=== PATIENT | female | born 1980 | race Caucasian/White ===

== ENCOUNTER 2018-03-16 09:59 | Emergency (ER) | payer OTHER, SELFPAY ==
[2018-03-16 10:01] VITALS: BP 137/83; PULSE 67; RESP 18; TEMP 36.7; O2SAT 100; BMI 18.2
--- NOTE | 2018-03-16 10:06 | DI.RAD.S_ITS ---
PROCEDURE: XR CHEST 1V INDICATIONS: chest pain TECHNIQUE: One view of the chest was acquired. COMPARISON: None. FINDINGS: Surgical changes and devices: None. Lungs and pleura: No pleural effusions or pneumothorax. Lungs are clear. Mediastinum: Mediastinal contours appear normal. Heart size is normal. Bones and chest wall: No suspicious bony lesions. Overlying soft tissues appear unremarkable. IMPRESSION: No acute disease. Dictated by: Flaquito Presley M.D. on 03/16/2018 at 11:13 Approved by: Flaquito Presley M.D. on 03/16/2018 at 11:15
[2018-03-16 10:33] LABS: INR 1.1 (0.9-1.3); Prothrombin Time 11.7 SECONDS (10.1-12.7)
[2018-03-16 10:35] LABS: Add Manual Diff / Slide Review NO; Basophils Percent Auto 0.6 % (0-2); Eosinophils Percent Auto 0.7 % (2-4); Lymphocytes Percent Auto 20.3 % (25-40); Mean Corpuscular HGB Conc 34.2 % (30-36); Mean Corpuscular Hemoglobin 30.5 PG (26-34); Mean Corpuscular Volume 89.2 fL (80-100); Monocytes Percent Auto 4.8 % (3-14); Neutrophils Absolute Auto 7100 /uL (3000-5900); Neutrophils Percent Auto 73.6 % (50-75); Platelet Count 331 X10^3/uL (150-400); Red Blood Cell Count 4.26 X10^6/uL (4.0-5.2); Red Cell Distribution Width 12.3 % (11.6-14.8); White Blood Cell Count 9.6 X10^3/uL (4.5-11.0)
[2018-03-16 10:36] LABS: PTT Partial Thromboplastin Tim 31 SECONDS (26.4-36.2)
[2018-03-16 10:38] LABS: Alanine Aminotransferase 21 IU/L (9-52); Albumin 4.5 g/dL (3.5-5.0); Albumin Globulin Ratio 1.7 (1.0-2.8); Alkaline Phosphatase 46 U/L (38-126); Aspartate Aminotransferase 24 IU/L (14-36); BUN Creatinine Ratio 11.4 (6-22); Bilirubin Total 0.7 mg/dL (0.2-1.3); Blood Urea Nitrogen 8 mg/dL (7-17); Calcium 9.3 mg/dL (8.4-10.2); Carbon Dioxide 24 mmol/L (22-32); Chloride 104 mmol/L (98-107); Creatine Kinase 62 U/L (30-135); Estimated Glomerular Filt Rate > 60.0 mL/min (>60); Globulin 2.6 g/dL (1.7-4.1); Glucose 100 mg/dL (70-100); HEMOLYSIS < 15 (0-50); Lipase 109 U/L (23-300); Potassium 4.3 mmol/L (3.4-5.1); Sodium 140 mmol/L (137-145); Total Protein 7.1 g/dL (6.3-8.2)
[2018-03-16 10:50] LABS: Troponin I < 0.012 ng/mL (0.01-0.034)
--- NOTE | 2018-03-16 11:15 | ED_ITS ---
HPI - Chest Pain General Chief Complaint: Chest Pain Stated Complaint: CHEST PAIN Time Seen by Provider: 03/16/18 10:54 Source: patient Mode of arrival: ambulatory Limitations: no limitations History of Present Illness HPI narrative: Patient is a 29-year-old female who presents with left-sided chest pain she says she feels twinges all off and on. It started yesterday. It happens at rest and with movement and exertion. No radiation it is in 1 spot. It felt better last night he held onto it. She denies any productive cough. Patient is not reproducible with arm movement. MD complaint: chest pain Related Data Home Medications Medication Instructions Recorded Confirmed cholecalciferol (vitamin D3) 1 tab PO QDAY #0 09/21/16 03/16/18 [Vitamin D3] ibuprofen 400 mg PO PRN PRN 03/16/18 03/16/18 norethindrone ac-eth estradiol 1 tab PO DAILY 03/16/18 03/16/18 [Microgestin 1.5/30 (21)] propranolol 20 mg PO PRN PRN 03/16/18 03/16/18 Allergies Allergy/AdvReac Type Severity Reaction Status Date / Time No Known Drug Allergies Allergy Verified 03/16/18 10:05 Review of Systems Review of Systems GENERAL: Denies chills, fatigue, malaise, fever, sweats, travel HEENT: Denies sinus pain, ear pain, sore throat, difficulty swallowing, neck pain RESPIRATORY: Denies dyspnea, cough, wheezing, hemoptysis, sputum. CARDIOVASCULAR: See HPI GASTROINTESTINAL: Denies nausea, vomiting, abdominal pain, diarrhea, constipation, melena. : Denies dysuria, frequency, incontinence, hematuria, urinary retention, flank pain. MUSCULOSKELETAL: Denies weakness, joint pain, or bony pain SKIN: No rash, no erythema, no pruritus NEUROLOGIC: Denies weakness, dizziness, headache, numbness, change in speech, confusion PSYCHIATRIC: No concerning psychosocial issues. 12 point review of systems is negative except for those stated above and HPI PFSH Medical History Anxiety (Chronic ~2014) Frequent UTI (Chronic) Skin rash (Chronic ~2010) Surgical History Anesthesia (Inactive) History of third molar tooth extraction Status post delivery (11/15/06) Status post delivery (03/04/10) Status post delivery (07/10/12) Family History Father Age: 60 Hypertension High cholesterol Grandfather Age: 85 Skin cancer Heart disease Grandfather Heart disease Social History Smoking Status: Never smoker Exam Initial Vital Signs Initial Vital Signs: Vital Signs Temperature 98.1 F 03/16/18 10:01 Pulse Rate 67 03/16/18 10:01 Respiratory Rate 18 03/16/18 10:01 Blood Pressure 137/83 03/16/18 10:01 Pulse Oximetry 100 03/16/18 10:01 GENERAL: Well-appearing, well-nourished and in no acute distress. HEENT: Head atraumatic,EOMI, pupils reactive, face symmetric, moist mucous membranes CARDIOVASCULAR: Regular rate and rhythm without murmurs, rubs or gallops. RESPIRATORY: Breath sounds equal bilaterally, no wheezes rales or rhonchi. ABDOMEN: Soft, nontender. Normoactive bowel sounds all 4 quadrants. No guarding or rebound. : No CVA tenderness EXTREMITIES: Normal range of motion, no clubbing or edema. Neurovascularly intact NEUROLOGICAL: Alert and oriented x4.Normal gait and speech. Cranial nerves II through XII grossly intact. SKIN: Warm, dry, no laceration, no petechiae, no rashes or lesions. Scores PERC Score Age greater than or equal to 50 years: No Heart rate greater than or equal to 100 bpm: No Room Air O2 Sat less than 95%: No Unilateral leg swelling: No Recent trauma or surgery: No Hemoptysis: No Prior PE or DVT: No Hormone Use: Yes Total PERC Score: 1 Course Orders Ordered: ED Orders 03/16/18 10:06 XR chest 1V Stat 03/16/18 10:19 Complete Blood Count AUTO DIFF Stat Comprehensive Metabolic Panel Stat Lipase Stat Partial Thromboplastin Time Stat Prothrombin Time INR Stat Troponin & CK Cardiac Panel Stat Discontinued Medications Ketorolac Tromethamine (Toradol) 30 mg IM NOW ONE Stop: 03/16/18 11:33 Last Admin: 03/16/18 11:42 Dose: 30 mg Vital Signs - 8 hr 03/16/18 10:01 03/16/18 12:02 Temperature 98.1 F Pulse Rate 67 73 Respiratory Rate 18 20 Blood Pressure 137/83 Pulse Oximetry 100 100 MDM - Chest Pain Lab Data Attestation: I reviewed the patient's lab results. Result diagrams: 03/16/18 10:19 03/16/18 10:19 Lab Results 03/16/18 03/16/18 03/16/18 Range/Units 10:19 10:19 10:19 WBC 9.6 (4.5-11.0) X10^3/uL RBC 4.26 (4.0-5.2) X10^6/uL Hgb 13.0 (12.0-16.0) g/dL Hct 38.0 (36-46) % MCV 89.2 (80-100) fL MCH 30.5 (26-34) PG MCHC 34.2 (30-36) % RDW 12.3 (11.6-14.8) % Plt Count 331 (150-400) X10^3/uL Neut % (Auto) 73.6 (50-75) % Lymph % (Auto) 20.3 L (25-40) % Kleberg % (Auto) 4.8 (3-14) % Eos % (Auto) 0.7 L (2-4) % Baso % (Auto) 0.6 (0-2) % Neut # (Auto) 7100 H (1951-9240) /uL PT 11.7 (10.1-12.7) SECONDS INR 1.1 (0.9-1.3) APTT 31 (26.4-36.2) SECONDS Sodium 140 (137-145) mmol/L Potassium 4.3 (3.4-5.1) mmol/L Chloride 104 (98-107) mmol/L Carbon Dioxide 24 (22-32) mmol/L BUN 8 (7-17) mg/dL Creatinine 0.70 (0.52-1.04) mg/dL Estimated GFR > 60.0 (>60) mL/min BUN/Creatinine Ratio 11.4 (6-22) Glucose 100 (70-100) mg/dL Calcium 9.3 (8.4-10.2) mg/dL Total Bilirubin 0.7 (0.2-1.3) mg/dL AST 24 (14-36) IU/L ALT 21 (9-52) IU/L Alkaline Phosphatase 46 (38-126) U/L Total Creatine Kinase 62 (30-135) U/L CK-MB (CK-2) TNP CK-MB (CK-2) Rel Index TNP Troponin I < 0.012 (0.01-0.034) ng/mL Total Protein 7.1 (6.3-8.2) g/dL Albumin 4.5 (3.5-5.0) g/dL Globulin 2.6 (1.7-4.1) g/dL Albumin/Globulin Ratio 1.7 (1.0-2.8) Lipase 109 (23-300) U/L Imaging Data Chest x-ray: Radiologist's impression: [address] [address] XRay Report Signed Patient: Meg Tee QMR#: [id number] : 1980Acct:[id number] Age/Sex: 37 / FDate of Service: 03/16/18 Loc: ED Accession Number: [id number] Procedure: XR chest 1V Ordering Provider: Lisandra Bustamante D.O. PROCEDURE: XR CHEST 1V INDICATIONS: chest pain TECHNIQUE: One view of the chest was acquired. COMPARISON: None. FINDINGS: Surgical changes and devices: None. Lungs and pleura: No pleural effusions or pneumothorax. Lungs are clear. Mediastinum: Mediastinal contours appear normal. Heart size is normal. Bones and chest wall: No suspicious bony lesions. Overlying soft tissues appear unremarkable. IMPRESSION: No acute disease. Dictated by: Flaquito Presley M.D. on 03/16/2018 at 11:13 ECG Data Attestation: I personally reviewed and interpreted this ECG as follows: Interpretation: Normal sinus rhythm rate 60 no acute changes MA interval [address] changes no T-wave inversions MDM Narrative Medical decision making narrative: Patient's pain is and 1 particular spot been ongoing for a number of hours. It is not consistent with cardiac pain or PE. it is worse with movement more likely costochondritis Discharge Plan Departure Patient Disposition: Home Clinical Impression: Acute costochondritis Discharge Date/Time: 03/16/18 12:03 Interventions: ED Discharge Assessment Last Done: 03/16/18 12:02 Instructions: Costochondritis Activity Restrictions/Additional Instructions: *You have been diagnosed with costochondritis *Continue to take medications as directed Motrin 800 mg with food every 8 hr if needed for pain *Follow up with your primary care provider in 2-3 days *Return to ER if you should have increasing chest pain, shortness of breath or any new, worsening or concerning symptoms Prescriptions: No Action cholecalciferol (vitamin D3) [Vitamin D3] 2,000 UNIT tablet 1 tab PO QDAY Qty: 0 RF: 0 norethindrone ac-eth estradiol [Microgestin 1.09/27 ()] 1.5-30 mg-mcg tablet 1 tab PO DAILY RF: 0 ibuprofen 200 mg Tablet 400 mg PO PRN PRN (Reason: Pain, Mild) RF: 0 propranolol 20 MG tablet 20 mg PO PRN PRN (Reason: Anxiety) RF: 0 Referrals: Janee Epps ARNP [Primary Care Provider] -
[2018-03-16] MEDS: KETOROLAC 60 MG/2 ML VIAL 30 MG IM (11:42)
[2018-03-16 12:02] VITALS: PULSE 73; RESP 20; O2SAT 100
--- NOTE | 2018-03-17 16:20 | CM.MNRNOTE ---
call back, no answer
== END 2018-03-16 12:03 | disposition home or self-care (01) ==
PROVIDERS: Emergency Provider Emergency Medicine; PCP Internal Medicine
DX: M94.0 Chondrocostal junction syndrome [Tietze] (principal)
CPT/HCPCS: 36415; 71045; 80053; 82550; 83690; 84484; 85025; 85610; 85730; 93005; 96372; 99283; 99285; J1885

== ENCOUNTER → 2019-03-11 08:13 | Outpatient (CLI) | payer OTHER, SELFPAY ==
--- NOTE | 2019-03-11 | DI.US.S_ITS ---
LIMITED ULTRASOUND OF LEFT BREAST: 03/11/2019 CLINICAL: Per technologist, patient reports sharp medial left breast pain beginning in mid-January 2019 and lasting for approximately 1-2 weeks which has since resolved. The patient reports that the pain is no longer present, but when it was present extended medially along the left breast along the 9 o'clock position. Comparison is made to exams dated: 03/11/2019 mammogram, 09/21/2016 ultrasound, and 09/21/2016 mammogram - [facility]. Color flow and real-time ultrasound of the left breast 9 o'clock region were performed. [place] scale images of the real-time examination were reviewed. Targeted ultrasound was performed in the region of the patient's reported prior painful area of concern along the 9 o'clock position of the left breast (which has since reportedly resolved per patient). No underlying breast mass or abnormality is identified. IMPRESSION: NEGATIVE 1) No ultrasound findings to explain patient's reported prior painful area of concern along the 9 o'clock position of the left breast (which has since reportedly resolved per patient). Recommend clinical follow-up for further evaluation and management of the patient's reported symptoms. 2) There is no sonographic evidence of malignancy in the imaged areas of the medial left breast. Return to annual screening mammography schedule is recommended. The patient is advised to monitor her breasts and to return sooner for re-evaluation should she feel anything grow or change. This exam was interpreted at Station ID: [id number]. Electronically Signed By: Bill Braxton M.D. ecl/:03/11/2019 09:36:48 letter sent: Clinical Evaluation Ultrasound BI-RADS: 1 Negative
--- NOTE | 2019-03-11 | DI.MG.S_ITS ---
BILATERAL DIGITAL DIAGNOSTIC MAMMOGRAM 3D/2D: 03/11/2019 CLINICAL: Per technologist, patient reports sharp medial left breast pain beginning in mid-January 2019 and lasting for approximately 1-2 weeks which has since resolved. The patient reports that the pain is no longer present, but when it was present extended medially along the left breast along the 9 o'clock position. Comparison is made to exam dated: 09/21/2016 [facility]. The tissue of both breasts is heterogeneously dense. This may lower the sensitivity of mammography. There is no underlying mass or abnormality of the medial left breast on mammography to correspond to the site of patient's reported prior medial left breast pain, which has reportedly resolved. No significant masses, calcifications, or other findings are seen in either breast. IMPRESSION: INCOMPLETE: NEEDS ADDITIONAL IMAGING EVALUATION There is no underlying mass or abnormality of the medial left breast on mammography to correspond to the site of patient's reported prior medial left breast pain, which has since reportedly resolved. Targeted diagnostic ultrasound recommended for further evaluation, which will be performed immediately following this exam. This exam was interpreted at Station ID: [id number]. NOTE: For mammograms, a report in lay terms will be sent to the patient. Approximately 15% of breast malignancies will not be visualized mammographically. In the management of a palpable breast mass, a negative mammogram must not discourage biopsy of a clinically suspicious lesion. Electronically Signed By: Bill Braxton M.D. ecl/:03/11/2019 09:34:27 ACR BI-RADS Category 0: Incomplete [id number]
== END ==
PROVIDERS: PCP Internal Medicine; Referring Provider Specialist; Visit Provider Nurse Practitioner Family
DX: R92.8 Other abnormal and inconclusive findings on diagnostic imaging of breast (principal); N64.4 Mastodynia
CPT/HCPCS: 76642; 77066; G0279